=== PATIENT | female | born 1990 | race Hispanic/Latino ===

== ENCOUNTER 2017-07-27 14:59 | Inpatient (IN) | payer OTHER, SELFPAY ==
[~2017-07-27] VITALS: Ht 165.1 cm; Wt 124.4 kg
[2017-07-27] MEDS ORDERED: NEXI40GR PO (15:18)
[2017-07-27] MEDS ORDERED: IBUP-1114 PO (15:18)
--- NOTE | 2017-07-27 17:33 | REP ---
CT study of the brain without contrast: History: Headache. Swelling over the area of the SOLUTIONS DELIVERY CONSULTANT shunt. No comparison imaging. Findings: Preliminary digital journeyman welder radiograph demonstrates a ventriculostomy shunt catheter. Bone window settings show a right frontal ventriculostomy shunt tube in place coursing through the frontal horns. The lateral ventricles are small. No third ventricle or fourth ventricle dilation is seen. No extra-axial fluid collection is observed. No midline shift, intracranial hemorrhage, mass or infarction is seen. A fluid filled reservoir is seen for the shunt catheter at the bony calvarium. No other scalp lesion is seen. Visualized paranasal sinuses are clear. Impression: Right frontal ventriculostomy tube in place coursing through the frontal horns of the lateral ventricles. No evidence of hydrocephalous. No acute intracranial abnormality. Signed by Rafat Meraz MD 07/27/2017 06:55 P
[2017-07-27] MEDS ORDERED: NS 1,000 ML IV SCH (19:42)
[2017-07-27] MEDS ORDERED: METOCLOPRAMIDE INJ 10MG/2ML VIAL (J2765) IV ONE (19:45)
--- NOTE | 2017-07-27 20:04 | REP ---
Shunt series: Two views. History: Pain. Findings: The patient is status post lumboperitoneal shunt placement. The intraspinal portion of the shunt tube appears intact and is seen entering the spinal canal at the T12-L1 interspinous space and ascending up into the lower thoracic spine, terminating at T10. The peritoneal portion of the shunt is coiled upon itself in the pelvic peritoneal reflections and does not appear to connect to the lumbar portion. Impression: Discontinuous, disconnected lumboperitoneal shunt. The shunt tubing is disconnected between the dorsal paraspinal soft tissues and the peritoneal portion, which is coiled in the pelvic reflections. Signed by Rafat Meraz MD 07/27/2017 08:07 P
[2017-07-27 21:01] LABS: BASO % 0.6 % (0.0-1.0); EOS # 0.2 K/mm3 (0.0-0.50); LARGE UNSTAINED CELL # 0.1 K/mm3 (0.0-0.4); LARGE UNSTAINED CELL % 1.5 % (0.0-4.0); LYMPH # 2.5 K/mm3 (1.5-6.5); LYMPH % 32.1 % (24.0-44.0); MEAN CORPUSCULAR HEMOGLOBIN 27.6 pg (27.0-33.0); MEAN CORPUSCULAR HGB CONC 34.3 g/dl (32.0-36.5); MEAN CORPUSCULAR VOLUME 80.4 fl (80.0-96.0); MONO # 0.3 K/mm3 (0.0-0.8); MONO % 3.9 % (0.0-5.0); NEUTROPHILS # 4.7 K/mm3 (1.8-7.7); PLATELET COUNT, AUTOMATED 262 k/mm3 (150-450); RED CELL DISTRIBUTION WIDTH 13.8 % (11.5-14.5); WHITE BLOOD COUNT 7.8 K/mm3 (4.0-10.0)
[2017-07-27 21:08] LABS: ANION GAP 5 MEQ/L (8-16); BLOOD UREA NITROGEN 8 MG/DL (7-18); CALCIUM LEVEL 8.5 MG/DL (8.5-10.1); CARBON DIOXIDE LEVEL 28 MEQ/L (21-32); CHLORIDE LEVEL 106 MEQ/L (98-107); CREATININE FOR GFR 0.88 MG/DL (0.55-1.02); GLOMERULAR FILTRATION RATE > 60.0 (>60); GLUCOSE, FASTING 94 MG/DL (70-105); SODIUM LEVEL 139 MEQ/L (136-145)
[2017-07-27 21:23] LABS: GLUCOSE CSF 66 MG/DL (40-75)
[2017-07-27] MEDS ORDERED: ACETAMINOPHEN 325 MG TAB As Ordered ONE (21:53)
[2017-07-27] MEDS: ACETAMINOPHEN TAB 650MG DOSE (2X325MG) PO SCH (21:55)
[2017-07-27 21:57] LABS: APPEARANCE, CSF HAZY (CLEAR); COLOR, CSF PINK (COLORLESS); CSF TUBE# CELL CNT TUBE 3
[2017-07-27 21:58] LABS: CSF DIFF IF INDICATED? YES (NO); CSF DILUENT LOT # 6333; RBC CSF AUTO 2516 /mm3 (0-0); WBC CSF AUTO 29 /mm3 (0-10)
[2017-07-28] VITALS (7 sets, daily range): BP systolic 108–130; BP diastolic 57–79
[2017-07-28 01:21] LABS: INR 1.07
[2017-07-28] MEDS: ACETAMINOPHEN TAB 650MG DOSE (2X325MG) PO SCH ×6 (02:08→22:49)
[2017-07-28] MEDS ORDERED: SLF 3 ML SYR IV PRN (07:45)
[2017-07-28] MEDS: traMADol 50 MG TAB PO PRN ×2 (10:37→14:42)
[2017-07-28] MEDS: raNITIdine SYRUP 150 MG/10 ML UDC PO SCH ×2 (10:38→21:10)
[2017-07-28] MEDS: SLF 3 ML SYR IV SCH ×2 (14:00→22:49)
[2017-07-28] MEDS: ONDANSETRON 4MG/2ML VIAL (J2405) IV PRN (15:51)
[2017-07-28] MEDS: MORPHINE 10 MG/ML 1ML VIAL IV PRN ×2 (18:44→23:19)
[2017-07-29] VITALS: BP 124/62
[2017-07-29] MEDS: ONDANSETRON 4MG/2ML VIAL (J2405) IV PRN ×5 (00:04→22:06)
[2017-07-29 04:00] VITALS: BP 117/64
[2017-07-29] MEDS: ACETAMINOPHEN TAB 650MG DOSE (2X325MG) PO SCH ×5 (05:00→20:44)
[2017-07-29] MEDS: SLF 3 ML SYR IV SCH ×3 (06:00→20:45)
[2017-07-29] MEDS: MORPHINE 10 MG/ML 1ML VIAL IV PRN ×4 (07:58→22:07)
[2017-07-29 08:00] VITALS: BP 116/72
[2017-07-29] MEDS ORDERED: INFLUENZA QUADRIVALENT PF VACCINE 0.5ML SYRINGE (90686) IM ONE (09:00)
[2017-07-29] MEDS: raNITIdine SYRUP 150 MG/10 ML UDC PO SCH ×2 (09:45→20:52)
[2017-07-29 12:00] VITALS: BP 110/58
[2017-07-29 16:00] VITALS: BP 136/66
[2017-07-29 21:00] VITALS: BP 123/70
[2017-07-30 01:00] VITALS: BP 109/52
[2017-07-30] MEDS: ACETAMINOPHEN TAB 650MG DOSE (2X325MG) PO SCH ×6 (01:00→21:00)
[2017-07-30] MEDS: ONDANSETRON 4MG/2ML VIAL (J2405) IV PRN ×5 (02:38→22:39)
[2017-07-30] MEDS: MORPHINE 10 MG/ML 1ML VIAL IV PRN ×5 (02:39→22:39)
[2017-07-30 08:00] VITALS: BP 135/67
[2017-07-30] MEDS: raNITIdine SYRUP 150 MG/10 ML UDC PO SCH ×2 (08:26→21:23)
[2017-07-30] MEDS: SLF 3 ML SYR IV SCH ×3 (08:27→21:22)
[2017-07-30 16:14] VITALS: BP 118/56
[2017-07-30 20:00] VITALS: BP 117/59
[2017-07-30] MEDS: D5W/0.9% SODIUM CHLORIDE 1,000 ML IV SCH (23:46)
[2017-07-31] VITALS: BP 102/51
[2017-07-31] MEDS: ACETAMINOPHEN TAB 650MG DOSE (2X325MG) PO SCH ×6 (01:00→20:57)
[2017-07-31] MEDS: ONDANSETRON 4MG/2ML VIAL (J2405) IV PRN ×4 (03:43→18:46)
[2017-07-31] MEDS: MORPHINE 10 MG/ML 1ML VIAL IV PRN ×5 (03:44→22:45)
[2017-07-31] MEDS: SLF 3 ML SYR IV SCH ×3 (06:00→20:58)
[2017-07-31 08:00] VITALS: BP 111/67
[2017-07-31] MEDS: raNITIdine SYRUP 150 MG/10 ML UDC PO SCH ×2 (08:00→20:58)
[2017-07-31] MEDS: D5W/0.9% SODIUM CHLORIDE 1,000 ML IV SCH (08:01)
[2017-07-31 12:00] VITALS: BP 101/57
[2017-07-31 16:00] VITALS: BP 108/57
[2017-07-31 22:00] VITALS: BP 107/57
[2017-08-01] MEDS: ACETAMINOPHEN TAB 650MG DOSE (2X325MG) PO SCH ×6 (01:00→21:00)
[2017-08-01] MEDS: MORPHINE 10 MG/ML 1ML VIAL IV PRN ×6 (02:04→21:20)
[2017-08-01] MEDS: ONDANSETRON 4MG/2ML VIAL (J2405) IV PRN ×3 (02:04→21:19)
[2017-08-01 06:00] VITALS: BP 110/68
[2017-08-01] MEDS: SLF 3 ML SYR IV SCH ×3 (06:12→21:35)
[2017-08-01] MEDS: raNITIdine SYRUP 150 MG/10 ML UDC PO SCH ×2 (09:00→21:20)
[2017-08-01] MEDS: LACTULOSE 20 GM/30 ML SYRUP UD PO SCH (09:00)
[2017-08-01 14:00] VITALS: BP 98/53
[2017-08-01] MEDS: DOCUSATE SODIUM 100 MG CAP PO SCH (17:52)
[2017-08-01 22:00] VITALS: BP 120/70
[2017-08-02] MEDS: MORPHINE 10 MG/ML 1ML VIAL IV PRN ×6 (00:30→21:39)
[2017-08-02] MEDS: ACETAMINOPHEN TAB 650MG DOSE (2X325MG) PO SCH ×6 (01:00→21:00)
[2017-08-02] MEDS: ONDANSETRON 4MG/2ML VIAL (J2405) IV PRN ×3 (05:07→15:51)
[2017-08-02] MEDS: SLF 3 ML SYR IV SCH ×3 (05:12→21:47)
[2017-08-02 06:00] VITALS: BP 129/83
[2017-08-02] MEDS: LACTULOSE 20 GM/30 ML SYRUP UD PO SCH (09:00)
[2017-08-02] MEDS: DOCUSATE SODIUM 100 MG CAP PO SCH ×2 (09:31→21:00)
[2017-08-02] MEDS: raNITIdine SYRUP 150 MG/10 ML UDC PO SCH ×2 (09:31→21:46)
[2017-08-02 14:00] VITALS: BP 131/85
[2017-08-02 14:00] LABS: MEAN CORPUSCULAR HEMOGLOBIN 27.6 pg (27.0-33.0); MEAN CORPUSCULAR HGB CONC 34.9 g/dl (32.0-36.5); MEAN CORPUSCULAR VOLUME 79.2 fl (80.0-96.0); RED CELL DISTRIBUTION WIDTH 13.4 % (11.5-14.5); WHITE BLOOD COUNT 7.8 K/mm3 (4.0-10.0)
[2017-08-02 14:35] LABS: GLUCOSE CSF 79 MG/DL (40-75)
[2017-08-02 15:06] LABS: APPEARANCE, CSF CLEAR (CLEAR); COLOR, CSF PINK (COLORLESS); CSF DIFF IF INDICATED? YES (NO); CSF TUBE# CELL CNT TUBE 1; RBC CSF AUTO 6236 /mm3 (0-0); WBC CSF AUTO 56 /mm3 (0-10)
[2017-08-02 15:07] LABS: CSF DILUENT LOT # 6333
[2017-08-02 22:00] VITALS: BP 127/80
[2017-08-03] MEDS: ACETAMINOPHEN TAB 650MG DOSE (2X325MG) PO SCH ×6 (01:00→21:46)
[2017-08-03] MEDS: MORPHINE 10 MG/ML 1ML VIAL IV PRN ×6 (01:37→21:46)
[2017-08-03] MEDS: SLF 3 ML SYR IV SCH ×3 (05:51→21:47)
[2017-08-03 06:00] VITALS: BP 112/66
[2017-08-03 06:48] LABS: MEAN CORPUSCULAR HEMOGLOBIN 27.5 pg (27.0-33.0); MEAN CORPUSCULAR HGB CONC 34.4 g/dl (32.0-36.5); MEAN CORPUSCULAR VOLUME 79.9 fl (80.0-96.0); RED CELL DISTRIBUTION WIDTH 13.4 % (11.5-14.5); WHITE BLOOD COUNT 7.3 K/mm3 (4.0-10.0)
[2017-08-03] MEDS: LACTULOSE 20 GM/30 ML SYRUP UD PO SCH (09:00)
[2017-08-03] MEDS: raNITIdine SYRUP 150 MG/10 ML UDC PO SCH ×2 (09:57→21:45)
[2017-08-03] MEDS: DOCUSATE SODIUM 100 MG CAP PO SCH ×2 (09:58→21:46)
[2017-08-03 14:00] VITALS: BP 120/70
[2017-08-03] MEDS ORDERED: COLA100C5 PO (15:57)
[2017-08-03] MEDS ORDERED: ZANT1TAB PO (15:57)
[2017-08-03] MEDS ORDERED: TYLE325T5 PO (15:57)
[2017-08-03] MEDS ORDERED: MORP15IN4 IV (15:57)
[2017-08-03] MEDS ORDERED: ZOFR4SOL IV (15:57)
[2017-08-03] MEDS ORDERED: SALI0.9I2 IV (15:57)
[2017-08-03] MEDS ORDERED: cephulac PO (15:57)
[2017-08-04 00:02] VITALS: BP 115/64
[2017-08-04] MEDS: ACETAMINOPHEN TAB 650MG DOSE (2X325MG) PO SCH ×6 (01:27→21:00)
[2017-08-04] MEDS: MORPHINE 10 MG/ML 1ML VIAL IV PRN ×4 (01:32→18:43)
[2017-08-04 06:02] VITALS: BP 115/54
[2017-08-04] MEDS: SLF 3 ML SYR IV SCH ×3 (06:05→22:00)
[2017-08-04] MEDS: DOCUSATE SODIUM 100 MG CAP PO SCH ×2 (09:00→20:51)
[2017-08-04] MEDS: LACTULOSE 20 GM/30 ML SYRUP UD PO SCH (09:17)
[2017-08-04] MEDS: raNITIdine SYRUP 150 MG/10 ML UDC PO SCH ×2 (10:02→20:51)
[2017-08-04] MEDS ORDERED: PERCOCET 5MG/325MG TAB PO PRN (11:15)
[2017-08-04 14:00] VITALS: BP 110/60
[2017-08-04] MEDS: PERCOCET 5MG/325MG TAB PO PRN ×2 (14:19→20:53)
[2017-08-04 22:00] VITALS: BP 122/58
[2017-08-05] MEDS: ACETAMINOPHEN TAB 650MG DOSE (2X325MG) PO SCH ×6 (01:00→20:52)
[2017-08-05] MEDS: SLF 3 ML SYR IV SCH ×3 (03:30→20:49)
[2017-08-05] MEDS: MORPHINE 10 MG/ML 1ML VIAL IV PRN ×3 (03:30→20:47)
[2017-08-05] MEDS: PERCOCET 5MG/325MG TAB PO PRN ×3 (05:59→18:54)
[2017-08-05 06:00] VITALS: BP 110/54
[2017-08-05] MEDS: LACTULOSE 20 GM/30 ML SYRUP UD PO SCH (08:46)
[2017-08-05] MEDS: DOCUSATE SODIUM 100 MG CAP PO SCH ×2 (08:47→20:47)
[2017-08-05] MEDS: raNITIdine SYRUP 150 MG/10 ML UDC PO SCH ×2 (08:47→20:49)
[2017-08-05 14:00] VITALS: BP 125/71
[2017-08-05 22:00] VITALS: BP 112/80
[2017-08-06] MEDS: PERCOCET 5MG/325MG TAB PO PRN ×4 (00:29→21:00)
[2017-08-06] MEDS: ACETAMINOPHEN TAB 650MG DOSE (2X325MG) PO SCH ×6 (00:30→21:00)
[2017-08-06 06:00] VITALS: BP 102/58
[2017-08-06] MEDS: SLF 3 ML SYR IV SCH ×3 (06:00→20:59)
[2017-08-06] MEDS: MORPHINE 10 MG/ML 1ML VIAL IV PRN (08:00)
[2017-08-06] MEDS: LACTULOSE 20 GM/30 ML SYRUP UD PO SCH (08:00)
[2017-08-06] MEDS: DOCUSATE SODIUM 100 MG CAP PO SCH ×2 (08:00→20:58)
[2017-08-06] MEDS: raNITIdine SYRUP 150 MG/10 ML UDC PO SCH ×2 (08:00→20:58)
[2017-08-06] MEDS ORDERED: AcetaZOLAMIDE 500MG INJECTION (J1120) IV STA (12:40)
[2017-08-06 14:00] VITALS: BP 131/76
[2017-08-06] MEDS ORDERED: TROPICAMIDE 1% OPHTH SOLN 2ML OU STA (17:16)
[2017-08-06] MEDS ORDERED: TETRACAINE 0.5% OPHTH SOLN 4ML OU STA (17:16)
--- NOTE | 2017-08-06 17:31 | REP ---
MRA BRAIN WITH CONTRAST: HISTORY: Headache. CONTRAST: ProHance 20 mL. Unenhanced and enhanced 3D phase contrast MR angiography were performed. There are no filling defects in the deep venous system or dural sinuses. The right transverse and sigmoid sinuses are dominant. The left transverse and sigmoid sinuses are hypoplastic. There appears to be stenosis of the distal left transverse and proximal sigmoid sinus. IMPRESSION: 1. There is no sinus thrombosis. 2. There appears to be stenosis of the distal left transverse and proximal left sigmoid sinus. Signed by Luis Sawyer MD 08/07/2017 09:28 A
[2017-08-06] MEDS ORDERED: PHENYLEPHRINE HCL 10 % OPHTH. SOL 5ML OU STA (17:35)
[2017-08-06] MEDS: AcetaZOLAMIDE 250 MG TAB PO SCH (20:58)
[2017-08-06] MEDS ORDERED: AcetaZOLAMIDE 500MG INJECTION (J1120) IV SCH (21:00)
[2017-08-06 22:00] VITALS: BP 105/54
[2017-08-07] MEDS: ACETAMINOPHEN TAB 650MG DOSE (2X325MG) PO SCH ×6 (01:00→20:08)
[2017-08-07] MEDS: PERCOCET 5MG/325MG TAB PO PRN (02:45)
--- NOTE | 2017-08-07 04:45 | REP ---
Clinical: Intrathecal catheter positioning. Findings: There appears to be a catheter within the spinal canal with its superior tip at the T10 level extending caudally and exiting of via the T12/L1 right posterior interspace through the right paraspinous soft tissues into the subcutaneous tissue where there appears to be granulation tissue and/or fluid collection measuring 3.7 x 7.0 cm maximal AP and transverse diameter and approximately 6.1 cm in length (images 64 - 85). The end of the catheter terminates in a valve which is identified in the subcutaneous tissues at the L1 level. The free portion of catheter is then identified within the pelvis which has likely been disconnected from the above-mentioned valve. Liver, spleen, pancreas, gallbladder, bilateral adrenal glands and kidneys are normal for noncontrast evaluation. The enteric system is without obstruction or acute inflammatory process. The pelvis demonstrates partially collapsed normal bladder and age-appropriate uterus and adnexa with IUD identified. No pelvic fluid or ascites. No significant adenopathy. No mass lesion a discrete fluid collection/abscess. Lung bases are clear. Visualized heart and pericardium normal. Musculoskeletal structures are intact. Impression: 1. Intrathecal/spinal canal catheter as described above with possible collection in the paraspinous subcutaneous tissues which appears to be disconnected from a free catheter identified in the pelvis. 2. No intra-abdominal/pelvic or retroperitoneal collection or mass. Signed by Sean Medina MD 08/07/2017 04:37 A
[2017-08-07] MEDS: SLF 3 ML SYR IV SCH ×3 (05:47→20:09)
[2017-08-07 06:00] VITALS: BP 127/57
[2017-08-07 07:11] LABS: MEAN CORPUSCULAR HEMOGLOBIN 25.9 pg (27.0-33.0); RED CELL DISTRIBUTION WIDTH 13.3 % (11.5-14.5); WHITE BLOOD COUNT 7.1 10^3/uL (4.0-10.0)
[2017-08-07 07:12] LABS: INR 1.07
[2017-08-07 07:37] LABS: ALBUMIN 3.4 GM/DL (3.2-5.2); ALBUMIN/GLOBULIN RATIO 0.77 (1.00-1.93); ALKALINE PHOSPHATASE 85 U/L (45-117); ALT/SGPT 20 U/L (12-78); ANION GAP 6 MEQ/L (8-16); AST/SGOT 8 U/L (15-37); BILIRUBIN,TOTAL 0.4 MG/DL (0.2-1.0); BLOOD UREA NITROGEN 10 MG/DL (7-18); CALCIUM LEVEL 8.8 MG/DL (8.5-10.1); CARBON DIOXIDE LEVEL 25 MEQ/L (21-32); CHLORIDE LEVEL 107 MEQ/L (98-107); CREATININE FOR GFR 0.97 MG/DL (0.55-1.02); GLOMERULAR FILTRATION RATE > 60.0 (>60); GLUCOSE, FASTING 94 MG/DL (70-105); SODIUM LEVEL 138 MEQ/L (136-145); TOTAL PROTEIN 7.8 GM/DL (6.4-8.2)
[2017-08-07] MEDS: AcetaZOLAMIDE 250 MG TAB PO SCH ×2 (09:00→20:22)
[2017-08-07] MEDS ORDERED: AcetaZOLAMIDE 500MG INJECTION (J1120) IV STA (09:19)
[2017-08-07] MEDS: LACTULOSE 20 GM/30 ML SYRUP UD PO SCH (09:24)
[2017-08-07] MEDS: DOCUSATE SODIUM 100 MG CAP PO SCH ×2 (09:24→20:07)
[2017-08-07] MEDS: raNITIdine SYRUP 150 MG/10 ML UDC PO SCH ×3 (10:38→20:22)
[2017-08-07] MEDS: MORPHINE 10 MG/ML 1ML VIAL IV PRN (12:27)
[2017-08-07] MEDS ORDERED: BACITRACIN PWD 50,000 UNITS VIAL As Ordered ONE (12:49)
[2017-08-07] MEDS ORDERED: NAFCILLIN SOD 1 GM VIAL (S0032) As Ordered ONE (12:49)
[2017-08-07] MEDS ORDERED: THROMBIN SOLN 20,000 UNITS KIT As Ordered ONE (12:49)
[2017-08-07 13:15] VITALS: BP 107/61
[2017-08-07] MEDS ORDERED: LIDOCAINE 2% INJ 100 MG/5 ML SDV (FOR ANES.) As Ordered ONE (13:23)
[2017-08-07] MEDS ORDERED: ROCURONIUM BROMIDE 50 MG/5 ML VIAL/SYRINGE As Ordered ONE ×2 (13:23→15:43)
[2017-08-07] MEDS ORDERED: PROPOFOL 200 MG/20 ML VIAL As Ordered ONE ×2 (13:23→16:04)
[2017-08-07] MEDS ORDERED: MIDAZOLAM INJ 2 MG/2 ML VIAL (J2250) As Ordered ONE (13:24)
[2017-08-07] MEDS ORDERED: fentaNYL 100 MCG/2 ML INJECTION (J3010) As Ordered ONE ×5 (13:24→17:21)
[2017-08-07] MEDS ORDERED: ceFAZolin 2 GM/D5W 50 ML IV BAG (J0690) As Ordered ONE (13:37)
[2017-08-07 14:19] LABS: CONTROL LINE UCG INT CTR LINE PRESENT
[2017-08-07] MEDS ORDERED: dexameTHASONE 4 MG/ML 1ML VIAL (J1100) As Ordered ONE (14:24)
[2017-08-07] MEDS ORDERED: PHENYLephrine HCL 500 MCG/5 ML (100MCG/ML) SYRINGE (J2370) As Ordered ONE (14:26)
[2017-08-07] MEDS ORDERED: ONDANSETRON 4MG/2ML VIAL (J2405) As Ordered ONE (15:19)
[2017-08-07] MEDS ORDERED: NEOSTIGMINE 10 MG/10 ML VIAL (J2710) As Ordered ONE (15:22)
[2017-08-07] MEDS ORDERED: GLYCOPYRROLATE INJ 0.2 MG/ML 2 ML VIAL As Ordered ONE (15:22)
[2017-08-07] MEDS ORDERED: LABETALOL HCL 100 MG/20 ML VIAL As Ordered ONE (16:27)
[2017-08-07] MEDS ORDERED: BACITRACIN OINT 30GM As Ordered ONE (16:42)
[2017-08-07 17:25] LABS: CSF TUBE# CELL CNT TUBE 3
[2017-08-07 17:26] LABS: APPEARANCE, CSF CLEAR (CLEAR); COLOR, CSF COLORLESS (COLORLESS); CSF DIFF IF INDICATED? NO (NO)
[2017-08-07] MEDS ORDERED: PERCOCET 5MG/325MG TAB PO PRN (17:30)
[2017-08-07] MEDS ORDERED: LR 1,000 ML IV SCH (17:30)
[2017-08-07 17:36] LABS: GLUCOSE CSF 56 MG/DL (40-75)
[2017-08-07] MEDS: fentaNYL 100 MCG/2 ML INJECTION (J3010) IV PRN ×2 (17:38→17:45)
[2017-08-07] MEDS ORDERED: KCL 20MEQ IN D5/.45NACL 1000ML As Ordered ONE (17:56)
[2017-08-07] MEDS: KCL 20MEQ IN D5/0.45NS 1000ML 1,000 ML IV SCH (18:15)
[2017-08-07 18:21] VITALS: BP 112/69
[2017-08-07] MEDS: MORPHINE 2 MG/ML 1ML SYRINGE IV PRN ×2 (18:29→23:35)
[2017-08-07 20:00] VITALS: BP 115/70
[2017-08-08] VITALS: BP 105/55
[2017-08-08] MEDS: ACETAMINOPHEN TAB 650MG DOSE (2X325MG) PO SCH ×6 (03:11→19:55)
[2017-08-08] MEDS: KCL 20MEQ IN D5/0.45NS 1000ML 1,000 ML IV SCH ×2 (03:11→11:41)
[2017-08-08 04:00] VITALS: BP 108/63
[2017-08-08] MEDS: SLF 3 ML SYR IV SCH ×3 (05:10→19:58)
[2017-08-08] MEDS: MORPHINE 2 MG/ML 1ML SYRINGE IV PRN (07:27)
[2017-08-08 08:00] VITALS: BP 109/55
[2017-08-08] MEDS: raNITIdine SYRUP 150 MG/10 ML UDC PO SCH ×2 (08:43→19:54)
[2017-08-08] MEDS: DOCUSATE SODIUM 100 MG CAP PO SCH ×2 (08:43→19:54)
[2017-08-08] MEDS: AcetaZOLAMIDE 250 MG TAB PO SCH ×2 (08:43→22:41)
[2017-08-08] MEDS: LACTULOSE 20 GM/30 ML SYRUP UD PO SCH (08:43)
--- NOTE | 2017-08-08 09:27 | RO ---
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 visual failure with papilledema, morbid obesity, PROCEDURE: Revision of lumboperitoneal shunt, using Spetzler LP shunt catheter.. SURGEON: Berny Colmenares MD APPLIANCE REPAIR TECHNICIAN:( Dr. Cristino Shah and Dr. Adan Horan for the abdominal portion.) ANESTHESIA: General FINDINGS: Please see my recent progress note for the preoperative evaluation and discussions. The patient had benign intracranial hypertension diagnosed several years ago and underwent a lumboperitoneal shunt, which had to be revised on one occasion and also a right frontal ventriculostomy and Ommaya reservoir was placed as a backup. The patient did well and this shunt resolved most of her symptoms. Recently, she developed those symptoms back again with beginning visual failure and severe headaches. She was admitted to the hospital by Dr. Shah and she was waiting for a bed to be opened up at [facility] for further treatment. I was asked to see her for a second opinion and I did agree with Dr. Shah that she will require revision of her lumboperitoneal shunt. The patient clinically had no focal motor deficits. She had photophobia, photopsia, as well as blurred vision. An urgent ophthalmological examination was done by Dr. Quinn, which revealed severe papilledema. Various options of management were discussed with her yesterday and again today. She was aware of all options, risks, scope, expected outcome, sequel and all possible complications of surgery. Various surgical options were discussed including conversion of her right Ommaya reservoir into a ventriculoperitoneal shunt or replacement of her lumboperitoneal shunt, or optic fenestration. I had requested an MRI and MRV. Though the MRI could not be done , the MRV did show, as expected, stenosis of both transverse sinuses distally, and there was suggestion of a certain degree of flattening of the globe on the left, though no detailed images of the orbits were available. 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 Her pituitary gland was plastered against the inferior and posterior wall of the sella. She understood that surgery is not curative and understood the risk of surgery included but not limited to , paralysis, coma, meningitis, loss of vision and/or any other vital bodily functions, seizures, status epilepticus, failure of surgery, need for multiple surgeries, infection, bleeding, meningitis, pulmonary embolism (PE), deep vein thrombosis (DVT), myocardial infarction (DE), intracranial hypotension and its dreadful sequel, and/or any catastrophic sequel. She wished to proceed with surgery. She claims there is no way she can live with these headaches and visual blurring and sever photophobia and photopsia. Obtained informed consent and after all matters pertaining to the surgery, anesthesia and followup care have been discussed, and after she was aware of my role in her neurosurgical care, she wished to proceed with surgery. Once in the operating room, the general anesthesia was given by the anesthesia service. The area of surgery was prepped and draped in the usual sterile fashion after positioning her, with some difficulty on account of her morbid obesity in the right lateral decubitus position. After she was adequately prepped, her previous lumbar incision was opened. The deep layer of the superficial fascia region was reached and incised. The cut edges of the blood vessels were coagulated with bipolar cautery. Marked scar tissue was identified from the lumbodorsal fascia all the way up to the subcutaneous layers. Coiled shunt assembly was seen. A free floating anchoring device was also seen, which was removed. The intrathecal catheter was finally dissected off all this scar tissue. A valve was encountered and it was also similarly dissected free of scar tissue. The distal peritoneal catheter was disconnected at the distal end of the valve. Slow egress of cerebrospinal fluid (CSF) was seen at this valve. The intrathecal catheter was then disconnected from this valve, then the CSF gushed out. The opening pressure was approximately 50 cm or more. Clear CSF was sent for pathological examination. Using a connector, a new Spetzler catheter was then attached to the existing freely flowing intrathecal catheter and then secured with two # 2 zero silk ties on either end. A subcutaneous tunnel was created from the abdominal incision into the lumbar incision and the shunt tube was passed into the abdominal cavity where Dr. Shah and Dr. Horan performed a laparotomy to place the catheter intraperitoneally. Details of that procedure will be found elsewhere. The lumbar wound was closed in anatomic layers. Blood loss was negligible, maybe a couple of mL. I could not locate any family for further discussions. The patient however, had followup instructions. JUDITH
[2017-08-08 14:00] VITALS: BP 178/76
--- NOTE | 2017-08-08 19:58 | ROOPDOC ---
[facility] Report Of Operation Report of Operation DATE OF SURGERY: 08/07/2017 SURGEON: Dr. Roya Shah Co-Surgeon: This OR report is part of surgery performed by . He dictate main OR report. I dictate only part which was done by me. PROCEDURE PERFORMED: 1. Peritoneal catheter placement DESCRIPTION OF THE PROCEDURE OPERATIVE TECHNIQUE The abdomen skin incision is placed horizontally 2 cm lateral and 2 cm superior to the umbilicus. The abdominal opening was done in a stepwise fashion. After the skin is incised and the subcutaneous tissue dissected, the external fascia of the rectus abdominis muscle was dissected vertically, and then retracted laterally. The inner fascia was then grasped with a forceps and incised. This brings a smooth brighter layer in the field, the peritoneum, which was also grasped and opened with scissors. A purse-string suture is then placed around this last layer, using 3-0 Vicryl. Attention is then given to the tunneling portion. Tunneling was performed from the abdominal incision up to the head. A shunt passer was used for this step, which is advanced subcutaneously, kept over the clavicle, until it reaches the cranial incision. The distal catheter was then passed through the inner channel of the passer from proximal to distal. The passer is then removed and the shunt tubing is left in place. All exposed skin edges were covered with antibiotic-soaked sponges, and sterile towels were draped around the wound before shunt insertion. The peritoneal catheter was then inserted. Prior to catheter insertion, the patency of its distal end is verified and CSF flow through the entire system is confirmed. Using bayonets the distal catheter was inserted into the peritoneal cavity to a length of 30cm. The purse-string suture was secured. The wound was irrigated with antibiotic saline solution. Hemostasis is achieved. The fascia of the wound was closed by using interrupted Vicryl sutures , then the skin is closed in a standard fashion. ROYA SHAH MD Aug 08, 2017 19:58
[2017-08-08 22:00] VITALS: BP 141/65
[2017-08-09] MEDS: ACETAMINOPHEN TAB 650MG DOSE (2X325MG) PO SCH ×5 (01:00→17:29)
[2017-08-09] MEDS: SLF 3 ML SYR IV SCH ×2 (05:55→14:00)
[2017-08-09 06:00] VITALS: BP 123/79
[2017-08-09] MEDS: LACTULOSE 20 GM/30 ML SYRUP UD PO SCH ×2 (08:10→08:12)
[2017-08-09] MEDS: raNITIdine SYRUP 150 MG/10 ML UDC PO SCH (08:10)
[2017-08-09] MEDS: AcetaZOLAMIDE 250 MG TAB PO SCH (08:11)
[2017-08-09] MEDS: DOCUSATE SODIUM 100 MG CAP PO SCH ×2 (08:11→08:12)
[2017-08-09 14:00] VITALS: BP 132/70
[2017-08-09] MEDS ORDERED: DIAM500C PO (16:02)
--- NOTE | 2017-08-14 15:53 | DS.PDOC ---
General Date of Admission: Jul 27, 2017 Date of Discharge: Aug 08, 2017 Attending Physician: ROYA SHAH MD Specialist/Consultants Involve: PEÑA COOK MD Discharge Summary PROCEDURES PERFORMED DURING STAY: 1. Multiple Omaya reservar taps 2. Repair of lumbo-peritoneal shunt COMPLICATIONS/CHIEF COMPLAINT: Severe headache, nausea, vomiting ADMISSION DIAGNOSES: 1. LP shunt malfunction 2. Idiopatic intracranial hypertension DISCHARGE DIAGNOSES: 1. LP shunt malfunction 2. Idiopatic intracranial hypertension HISTORY OF PRESENT ILLNESS: . Mrs. Zee is 26 yo female with known diagnosis of IIH and LP shunt placement presented to [facility] with severe h/a, N&V and CT ABD reveal disconnection of abdominal portion of LP shunt. She was managed initially with [facility] CSF tapping. CSF result were negative for infection. HOSPITAL COURSE: . Patient underwent surgery on 08/07/2017 for the repair of LP shunt which was done by Dr. Cook and Dr. Shah. She has been discharge home next day with instruction to follow up with Dr. Cook office. DISCHARGE MEDICATIONS: Please see below. ALLERGIES: Please see below. PHYSICAL EXAMINATION ON DISCHARGE: VITAL SIGNS: Please see below. GENERAL: [Sitting comfortably and participating in conversion well. Appears to be in no acute distress]. EXTREMITIES: [No peripheral edema, ecchymosis, or lesions. Moving all 4 extremities well]. SKIN: [No rashes, ecchymosis, erythema, or lesions. Edges of the incision are close together nicely and incision is dry. There is no active drainage or significant swelling noted.] NEUROLOGICAL EXAMINATION: [Alert and oriented times three. Rate and flow of speech is fluent. No new focal deficits noted on exam]. LABORATORY DATA: Please see below. IMAGING: ACTIVITY: See below in discharge instructions. DIET: See below in discharge instructions. DISCHARGE PLAN AND INSTRUCTIONS: The following discharge instructions have been discussed with the patient. 1. Keep incision dry for at least 48 hours. 2. Keep incision clean and inspect daily for signs of infection (redness, discharge, swelling, increased pain, and warmth. 3. You may shower 48 hours after surgery. Avoid bath tubs, hot tubs/whirlpools, and swimming pools until cleared by surgeon or PA. 4. Do not apply lotions or creams near the incision site. 5. Start walking around the house as soon as possible. This helps to reduce swelling and lowers the chance of blood clots. 6. Continue to gradually increase physical activity. 7. Climbing stairs at home is permitted as tolerated with caution. If available use handrails, taking time going up and down the stairs paying close attention to place each foot on each step carefully. 8. No bending, twisting, pulling, pushing, or lifting greater than 5 pounds until followup in the office. 9. No strenuous activity for at least 2 weeks. 10. Get plenty of rest. 11. Follow a balanced diet and drink plenty of water. 12. Decreased activity and pain medications may promote constipation, so you may have to add more raw fruit to your diet. A mild [id number] stool softener or laxative may be used if necessary. 13. Take pain medications as prescribed. pain medications will not remove all the pain, but will lesson it significantly. 14. Do not drink alcohol while taking medications. 15. Do not drive or operate any machinery until you are given specific instructions about driving when you followup in the office. 16. Patient is to call the office to schedule followup appointment within 1-2 weeks of if any new signs or symptoms develop. [phone]. 17. Patient understands to call the office if any new questions arise. WHAT TO EXPECT: - Soreness, stiffness, and aching can be expected after surgery. - Aryv-jk-btvzrsyi postoperative pain. - Periods of fatigue and/or tiredness. - Healing is a slow and gradual process. - May experience sore throat and/or hoarseness of your voice. - Some numbness may be present around the area of the incision which may persist for several weeks. WHEN TO CALL: - Increased swelling or bruising. - If swelling and redness persist after a few days. - Increased redness along the incision. - If any unusual bleeding or drainage developed at the incision site. - If severe or increased pain not relieved by medication develops. - If any side effects to medications, such as rash, nausea, vomiting, or headache arises. - If temperature of 100.5 degrees or greater. - If any calf pain and/or swelling in any extremity develops. - Any new increased difficulty breathing or shortness of breath. - Any loss of feelings or emotions. - Increased intensity of headache or headache not responding to medications. - Inability to urinate. - Extreme fatigue or lethargy. - Any worsening of any of your symptoms. All questions have been answered to patient's satisfaction. Patient understands and is aware of possible catastrophic sequela if he/she does not follow these recommendations.Patient agrees to followup in the office within 2 weeks or sooner if needed. DISCHARGE CONDITION: Stable. TIME SPENT ON DISCHARGE: Greater than minutes. Laboratory Data Vital Signs Date Time Temp Pulse Resp B/P (MAP) Pulse Ox O2 Delivery O2 Flow Rate FiO2 08/09/17 14:00 97.3 73 17 132/70 (90) 98 Room Air Microbiology 08/07/17 Gram Stain - Final, Complete 08/07/17 CSF Culture - Final, Complete Discharge Medications Scheduled Acetaminophen (Tylenol) 325 Mg Tab, 650 MG PO Q4H, (Reported) Acetazolamide (Diamox) 500 Mg Cap, 500 MG PO BID, (Reported) Docusate Sodium (Colace) 100 Mg Cap, 100 MG PO BID, (Reported) Esomeprazole Magnesium (Nexium) 40 Mg Gra, 40 MG PO DAILY, (Reported) Scheduled PRN Ibuprofen (Ibuprofen) 400 Mg Tab, 400 MG PO Q6H PRN for PAIN, (Reported) Allergies Coded Allergies: No Known Allergies (Unverified , 07/27/17) ROYA SHAH MD Aug 14, 2017 15:53
== END 2017-08-09 17:31 | disposition home or self-care (01) | DRG 30 ==
LOC: M ED 14:59 → M ED INP 20:40 → M PED 23:55 → M MS5PR 07-31 18:07 → M ICU 08-07 17:18 → M MS5PR 08-08 09:49
PROVIDERS: ADMIT Neurological Surgery; ATTEND Neurological Surgery
PROC: 00JU0ZZ Inspection of Spinal Canal, Open Approach (ICD-10-PCS; 2017-08-07)
PROC: 0WHG33Z Insertion of Infusion Device into Peritoneal Cavity, Percutaneous Approach (ICD-10-PCS; 2017-08-07)
PROC: 0JH80WZ Insertion of Totally Implantable Vascular Access Device into Abdomen Subcutaneous Tissue and Fascia, Open Approach (ICD-10-PCS; principal; 2017-08-07 07:46)
DX: T85.620A Displacement of cranial or spinal infusion catheter, initial encounter (principal); E66.01 Morbid (severe) obesity due to excess calories; Z79.899 Other long term (current) drug therapy; G93.2 Benign intracranial hypertension; Y62 Failure of sterile precautions during surgical and medical care

== ENCOUNTER → 2017-11-20 | Outpatient (CLI) | payer OTHER ==
[2017-11-20 14:25] LABS: CSF RBC < 2 10^3/uL (<2)
[2017-11-20 14:26] LABS: APPEARANCE, CSF CLEAR (CLEAR); COLOR, CSF COLORLESS (COLORLESS); CSF TUBE# CELL CNT TUBE 1; CSF WBC 4 /uL (0-10)
[2017-11-20 14:38] LABS: CSF TUBE# GLU TUBE 1; CSF TUBE# TP TUBE 1; GLUCOSE CSF 61 MG/DL (40-75); TOTAL PROTEIN,CSF 32.9 MG/DL (15-45)
[2017-11-20 20:49] LABS: CSF DIFF IF INDICATED? NO (NO)
[2017-11-24 00:08] LABS: IMMUNOGLOBULIN G CSF 2.8 mg/dL (0.0-8.6)
[2017-11-24 09:34] LABS: CSF TUBE# BACT AG TUBE 1
[2017-11-24 09:40] LABS: CSF GROUP B STREP NEGATIVE (NEGATIVE); CSF H. INFLUENZA NEGATIVE (NEGATIVE); CSF N MENINGITIDIS ACYW135 NEGATIVE (NEGATIVE); CSF STREP PNUEMO NEGATIVE (NEGATIVE)
== END ==
LOC: M RADPRO 12:18
DX: G93.2 Benign intracranial hypertension (principal); Z79.899 Other long term (current) drug therapy; Z91.030 Bee allergy status
CPT/HCPCS: 62272

== ENCOUNTER → 2018-02-02 | Outpatient (CLI) | payer OTHER ==
[2018-02-02 13:42] LABS: CSF RBC < 2 10^3/uL (<2)
[2018-02-02 13:44] LABS: CSF DIFF IF INDICATED? NO (NO); CSF WBC 4 /uL (0-10)
[2018-02-02 13:53] LABS: CSF TUBE# GLU TUBE 1; CSF TUBE# TP TUBE 1; GLUCOSE CSF 61 MG/DL (40-75); TOTAL PROTEIN,CSF 22.3 MG/DL (15-45)
[2018-02-02 15:31] LABS: APPEARANCE, CSF CLEAR (CLEAR); COLOR, CSF COLORLESS (COLORLESS); CSF TUBE# CELL CNT TUBE 1
[2018-02-05 00:07] LABS: IMMUNOGLOBULIN G CSF 1.8 mg/dL (0.0-8.6)
== END ==
LOC: M RADPRO 11:41
DX: G93.2 Benign intracranial hypertension (principal); Z79.899 Other long term (current) drug therapy
CPT/HCPCS: 62272

== ENCOUNTER → 2018-02-24 | Outpatient (CLI) | payer OTHER ==
[2018-02-24 13:23] LABS: BASO % 0.6 % (0.0-1.0); EOS # 0.2 10^3/uL (0.0-0.50); EOS % 2.2 % (0.0-3.0); LYMPH % 43.3 % (24.0-44.0); MEAN CORPUSCULAR HEMOGLOBIN 25.5 pg (27.0-33.0); MEAN CORPUSCULAR HGB CONC 32.4 g/dl (32.0-36.5); MEAN CORPUSCULAR VOLUME 78.7 fl (80.0-96.0); MONO # 0.4 10^3/uL (0.0-0.8); MONO % 6.4 % (0.0-5.0); NEUTROPHILS # 3.3 10^3/uL (1.8-7.7); NEUTROPHILS % 47.5 % (36.0-66.0); PLATELET COUNT, AUTOMATED 272 10^3/uL (150-450); RED CELL DISTRIBUTION WIDTH 13.1 % (11.5-14.5); WHITE BLOOD COUNT 6.9 10^3/uL (4.0-10.0)
[2018-02-24 13:33] LABS: PROTHROMBIN TIME 13.3 SECONDS (12.4-14.5)
[2018-02-24 13:34] LABS: PARTIAL THROMBOPLASTIN TIME 39.1 SECONDS (26.8-37.9)
[2018-02-24 13:54] LABS: COLLAGEN EPINEPHRINE 121 SECONDS (74-162)
[2018-02-24 14:15] LABS: ALBUMIN 3.7 GM/DL (3.2-5.2); ALKALINE PHOSPHATASE 97 U/L (45-117); ALT/SGPT 19 U/L (12-78); ANION GAP 5 MEQ/L (8-16); AST/SGOT 9 U/L (7-37); BILIRUBIN,TOTAL 0.3 MG/DL (0.2-1.0); BLOOD UREA NITROGEN 15 MG/DL (7-18); CALCIUM LEVEL 8.9 MG/DL (8.5-10.1); CARBON DIOXIDE LEVEL 29 MEQ/L (21-32); CHLORIDE LEVEL 109 MEQ/L (98-107); CREATININE FOR GFR 0.94 MG/DL (0.55-1.30); GLOMERULAR FILTRATION RATE > 60.0 (>60); GLUCOSE, FASTING 96 MG/DL (70-100); POTASSIUM SERUM 3.8 MEQ/L (3.5-5.1); SODIUM LEVEL 143 MEQ/L (136-145); TOTAL PROTEIN 7.8 GM/DL (6.4-8.2)
== END ==
LOC: M LAB 12:57
DX: Z01.818 Encounter for other preprocedural examination (principal)
CPT/HCPCS: 71046

== ENCOUNTER 2018-03-04 06:37 | Inpatient (IN) | payer OTHER ==
[~2018-03-04 06:37] MED LIST: LIDOCAINE 2% INJ 100 MG/5 ML SDV (FOR ANES.) As Ordered; ONDANSETRON 4MG/2ML VIAL (J2405) As Ordered; PROPOFOL 200 MG/20 ML VIAL As Ordered; ROCURONIUM BROMIDE 50 MG/5 ML VIAL As Ordered; dexameTHASONE 4 MG/ML 1ML VIAL (J1100) As Ordered
[2018-03-04] MEDS ORDERED: LIDOCAINE 1% MDV 20ML VIAL SQ (07:00)
[2018-03-04] MEDS ORDERED: LR 1,000 ML IV (07:00)
[2018-03-04] MEDS: NAFCILLIN SOD 1 GM VIAL (S0032) As Ordered (07:02)
[2018-03-04] MEDS: LIDOCAINE W/EPINEPHRINE 1% 20ML VIAL As Ordered (07:02)
[2018-03-04] MEDS: THROMBIN SOLN 20,000 UNITS KIT As Ordered (07:02)
[2018-03-04] MEDS: BACITRACIN PWD 50,000 UNITS VIAL As Ordered (07:03)
[2018-03-04 07:31] LABS: CONTROL LINE UCG INT CTR LINE PRESENT; URINE PREG TEST NEGATIVE (NEGATIVE)
[2018-03-04] MEDS ORDERED: MIDAZOLAM INJ 2 MG/2 ML VIAL (J2250) As Ordered (08:50)
[2018-03-04] MEDS ORDERED: fentaNYL 250 MCG/5 ML INJECTION (J3010) As Ordered (08:50)
[2018-03-04] MEDS ORDERED: dexameTHASONE 4 MG/ML 1ML VIAL (J1100) As Ordered (08:50)
[2018-03-04] MEDS ORDERED: ePHEDrine SULFATE 25 MG/5 ML(5MG/ML) SYRINGE As Ordered (08:51)
[2018-03-04] MEDS: LR 1,000 ML IV (10:00)
[2018-03-04] MEDS ORDERED: MORPHINE 10 MG/ML 1ML VIAL (J2270) IV (10:00)
[2018-03-04] MEDS ORDERED: fentaNYL 100 MCG/2 ML INJECTION (J3010) IV (10:00)
[2018-03-04] MEDS ORDERED: PERCOCET 5MG/325MG TAB PO (10:00)
[2018-03-04] MEDS: ONDANSETRON 4MG/2ML VIAL (J2405) IV (10:40)
[2018-03-04] MEDS: KCL 20MEQ IN D5/0.45NS 1000ML 1,000 ML IV ×2 (11:56→19:50)
[2018-03-04] MEDS: AcetaZOLAMIDE 500MG INJECTION (J1120) IV (16:03)
[2018-03-04] MEDS ORDERED: AcetaZOLAMIDE 250 MG TAB PO (21:00)
== END 2018-03-04 20:08 | disposition home or self-care (01) | DRG 92 ==
LOC: M OR 06:37 → M MS5PR 11:36
PROC: 009U3ZZ Drainage of Spinal Canal, Percutaneous Approach (ICD-10-PCS; principal; 2018-03-04 08:15)
DX: T85.02XA Displacement of ventricular intracranial (communicating) shunt, initial encounter (principal); H47.10 Unspecified papilledema; G93.2 Benign intracranial hypertension; M47.892 Other spondylosis, cervical region; M47.896 Other spondylosis, lumbar region; Z98.2 Presence of cerebrospinal fluid drainage device; Z53.8 Procedure and treatment not carried out for other reasons; Y82.9 Unspecified medical devices associated with adverse incidents

== ENCOUNTER 2018-03-18 01:12 | Emergency (ER) | payer OTHER ==
[2018-03-18] MEDS: KETOROLAC 30 MG/ML VIAL (J1885) IV (02:15)
[2018-03-18] MEDS: diphenhydrAMINE INJ 50MG/ML VIAL (J1200) IV (02:15)
[2018-03-18] MEDS: NS 1,000 ML IV (02:15)
[2018-03-18] MEDS: METOCLOPRAMIDE INJ 10MG/2ML VIAL (J2765) IV ×2 (02:52→04:41)
[2018-03-18] MEDS: MORPHINE 4 MG/ML 1ML VIAL/SYRINGE (J2270) IV (04:40)
== END 2018-03-18 06:29 | disposition home or self-care (01) ==
LOC: M ED 01:12
DX: G43.909 Migraine, unspecified, not intractable, without status migrainosus (principal); G93.2 Benign intracranial hypertension; Z79.899 Other long term (current) drug therapy; Z91.030 Bee allergy status
CPT/HCPCS: J2270

== ENCOUNTER 2018-03-19 14:18 | Emergency (ER) | payer OTHER ==
[2018-03-19] MEDS ORDERED: MORPHINE 2 MG/ML 1ML SYRINGE (J2270) IV (16:00)
[2018-03-19 16:07] LABS: BASO % 0.5 % (0.0-1.0); EOS % 0.7 % (0.0-3.0); HEMATOCRIT 34.9 % (36.0-47.0); HEMOGLOBIN 10.7 g/dl (12.0-15.5); IMMATURE GRANULOCYTE % 0.3 % (0-3.0); LYMPH # 1.1 10^3/uL (1.5-6.5); LYMPH % 18.1 % (24.0-44.0); MEAN CORPUSCULAR HEMOGLOBIN 24.5 pg (27.0-33.0); MEAN CORPUSCULAR HGB CONC 30.7 g/dl (32.0-36.5); MONO # 0.2 10^3/uL (0.0-0.8); NEUTROPHILS # 4.6 10^3/uL (1.8-7.7); NEUTROPHILS % 76.4 % (36.0-66.0); RED BLOOD COUNT 4.36 10^6/uL (4.00-5.40); RED CELL DISTRIBUTION WIDTH 13.2 % (11.5-14.5)
[2018-03-19] MEDS ORDERED: MORPHINE 4 MG/ML 1ML VIAL/SYRINGE (J2270) As Ordered (16:10)
[2018-03-19] MEDS: MORPHINE 4 MG/ML 1ML VIAL/SYRINGE (J2270) IM (16:15)
[2018-03-19 16:17] LABS: INR 0.97
[2018-03-19 16:18] LABS: PARTIAL THROMBOPLASTIN TIME 28.7 SECONDS (26.8-37.9)
[2018-03-19 16:25] LABS: CONTROL LINE HCG INT CTR LINE PRESENT; HCG, SERUM QUALITATIVE NEGATIVE (NEGATIVE)
[2018-03-19 16:30] LABS: ANION GAP 5 MEQ/L (8-16); BLOOD UREA NITROGEN 11 MG/DL (7-18); CALCIUM LEVEL 8.7 MG/DL (8.5-10.1); CARBON DIOXIDE LEVEL 29 MEQ/L (21-32); CHLORIDE LEVEL 107 MEQ/L (98-107); CREATININE FOR GFR 0.85 MG/DL (0.55-1.30); GLOMERULAR FILTRATION RATE > 60.0 (>60); GLUCOSE, FASTING 91 MG/DL (70-100); LIPASE 104 U/L (73-393); POTASSIUM SERUM 3.8 MEQ/L (3.5-5.1); SODIUM LEVEL 141 MEQ/L (136-145)
[2018-03-19 17:10] LABS: PLATELET COUNT, AUTOMATED 30 10^3/uL (150-450); POS COUNT POS FLAG; POSITIVE MORPH POS FLAG; SUSPECT SAMPLE POS FLAG
[2018-03-19 17:14] LABS: IMMATURE PLATELET FRACTION % 2.4 % (0.0-9.6); PLATELET F 18
== END 2018-03-19 20:38 | disposition short-term general hospital (02) ==
LOC: M ED 14:18
DX: T85.09XA Other mechanical complication of ventricular intracranial (communicating) shunt, initial encounter (principal); G93.2 Benign intracranial hypertension; K21.9 Gastro-esophageal reflux disease without esophagitis; Z79.899 Other long term (current) drug therapy; Z91.030 Bee allergy status
CPT/HCPCS: J2270

== ENCOUNTER → 2020-01-17 | Outpatient (REF) | payer OTHER, MEDICAID ==
[~2020-01-17] MED LIST changes: +ACET50CA PO; +COLA100C5 PO; +DIAM500C PO; +IBUP-1114 PO; -LIDOCAINE 2% INJ 100 MG/5 ML SDV (FOR ANES.) As Ordered; +METF500T13 PO; +MORP15IN4 IV; +NEXI40GR PO; -ONDANSETRON 4MG/2ML VIAL (J2405) As Ordered; -PROPOFOL 200 MG/20 ML VIAL As Ordered; -ROCURONIUM BROMIDE 50 MG/5 ML VIAL As Ordered; +SALI0.9I2 IV; +TYLE325T5 PO; +ZANT150T15 PO; +ZOFR4SOL IV; +cephulac PO; -dexameTHASONE 4 MG/ML 1ML VIAL (J1100) As Ordered
[2020-01-17 13:29] LABS: HEMATOCRIT 29.8 % (36.0-47.0); HEMOGLOBIN 7.9 g/dl (12.0-15.5); MEAN CORPUSCULAR HEMOGLOBIN 14.6 pg (27.0-33.0); MEAN CORPUSCULAR HGB CONC 26.5 g/dl (32.0-36.5); MEAN CORPUSCULAR VOLUME 55.2 fl (80.0-96.0); WHITE BLOOD COUNT 8.1 10^3/uL (4.0-10.0)
[2020-01-17 13:46] LABS: ALBUMIN 3.4 GM/DL (3.2-5.2); ALT/SGPT 16 U/L (12-78); BILIRUBIN,TOTAL 0.2 MG/DL (0.2-1.0); BLOOD UREA NITROGEN 16 MG/DL (7-18); CALCIUM LEVEL 8.5 MG/DL (8.5-10.1); CARBON DIOXIDE LEVEL 23 MEQ/L (21-32); CHLORIDE LEVEL 112 MEQ/L (98-107); CHOLESTEROL LEVEL 109 MG/DL (<200); CHOLESTEROL RISK RATIO 3.758 (<5); FREE T4 1.11 NG/DL (0.76-1.46); GLOMERULAR FILTRATION RATE > 60.0 (>60); GLUCOSE, FASTING 100 MG/DL (70-100); HDL CHOLESTEROL 29 MG/DL (>40); LDL CHOLESTEROL 57 MG/DL (<100); NON-HDL-C 80 MG/DL; POTASSIUM SERUM 4.2 MEQ/L (3.5-5.1); SODIUM LEVEL 141 MEQ/L (136-145); TOTAL 25(OH) VITAMIN D 15.6 NG/ML (30.0-100.0); TOTAL PROTEIN 7.6 GM/DL (6.4-8.2); TRIGLYCERIDES LEVEL 114 MG/DL (<150)
[2020-01-17 14:11] LABS: EOSINOPHILS 1 % (0-3); LYMPHOCYTES 57 % (16-44); NEUTROPHILS 42 % (28-66)
[2020-01-17 14:12] LABS: PLATELET ESTIMATE NORMAL (NORMAL)
[2020-01-17 14:13] LABS: HYPOCHROMASIA 3+; OVALOCYTES 1+; ROULEAUX 2+
[2020-01-17 14:16] LABS: ANISOCYTOSIS 2+; PLATELET CLUMPS MODERATE AMT
[2020-01-17 14:18] LABS: POIKILOCYTOSIS 2+
[2020-01-17 19:58] LABS: HEMOGLOBIN A1c 5.6 %
== END ==
LOC: M LAB REF 12:05
PROVIDERS: ATTEND Nurse Practitioner Family
DX: E66.01 Morbid (severe) obesity due to excess calories (principal); I10 Essential (primary) hypertension; F44.89 Other dissociative and conversion disorders; Z28.3 Underimmunization status

== ENCOUNTER → 2021-05-09 | Outpatient (REF) | payer OTHER ==
[~2021-05-09] MED LIST changes: +FERR325T3 PO; +RIZA5TAB PO; +SUMA50TA2 PO; +TOPI100T9 PO
[2021-05-09 17:55] LABS: BASO % 0.6 % (0.0-1.0); EOS # 0.1 10^3/uL (0.0-0.5); EOS % 1.8 % (0.0-3.0); HEMATOCRIT 28.1 % (36.0-47.0); HEMOGLOBIN 7.3 g/dl (12.0-15.5); LYMPH # 2.7 10^3/uL (1.5-5.0); LYMPH % 38.2 % (24.0-44.0); MEAN CORPUSCULAR HEMOGLOBIN 13.9 pg (27.0-33.0); MEAN CORPUSCULAR VOLUME 53.4 fl (80.0-96.0); MONO # 0.5 10^3/uL (0.0-0.8); MONO % 6.3 % (2.0-8.0); NEUTROPHILS # 3.8 10^3/uL (1.5-8.5); NEUTROPHILS % 52.8 % (36.0-66.0); PLATELET COUNT, AUTOMATED 317 10^3/uL (150-450); RED BLOOD COUNT 5.26 10^6/uL (4.00-5.40); WHITE BLOOD COUNT 7.2 10^3/uL (4.0-10.0)
[2021-05-09 18:03] LABS: APPEARANCE, URINE HAZY (CLEAR); BACTERIA, URINE AUTO NEGATIVE (NEGATIVE); BILIRUBIN, URINE AUTO NEGATIVE (NEGATIVE); BLOOD, URINE BLOOD NEGATIVE (NEGATIVE); COLOR, URINE YELLOW (YELLOW); GLUCOSE, URINE (UA) AUTO NEGATIVE (NEGATIVE); KETONE, URINE AUTO NEGATIVE (NEGATIVE); LEUKOCYTE ESTERASE, URINE AUTO NEGATIVE (NEGATIVE); MUCUS, URINE MODERATE (NEGATIVE); NITRITE, URINE AUTO NEGATIVE (NEGATIVE); PROTEIN, URINE AUTO 2+ mg/dL (NEGATIVE); RBC, URINE AUTO 0 /HPF (0-3); SPECIFIC GRAVITY URINE AUTO 1.031 (1.002-1.035); SQUAMOUS EPITHELIAL CELL UR AU 8 /HPF (0-6); UROBILINOGEN, URINE AUTO 0.2 mg/dL (0.0-2.0); WBC, URINE AUTO 3 /HPF (0-3)
[2021-05-09 18:24] LABS: ALBUMIN 3.5 GM/DL (3.2-5.2); ALT/SGPT 14 U/L (12-78); BILIRUBIN,TOTAL 0.4 MG/DL (0.2-1.0); BLOOD UREA NITROGEN 10 MG/DL (7-18); CALCIUM LEVEL 8.3 MG/DL (8.5-10.1); CARBON DIOXIDE LEVEL 24 MEQ/L (21-32); CHLORIDE LEVEL 108 MEQ/L (98-107); CHOLESTEROL LEVEL 132 MG/DL (<200); CHOLESTEROL RISK RATIO 3.473 (<5); CREATININE FOR GFR 0.82 MG/DL (0.55-1.30); FREE T4 1.17 NG/DL (0.76-1.46); GLOMERULAR FILTRATION RATE > 60.0 (>60); GLUCOSE, FASTING 85 MG/DL (70-100); HDL CHOLESTEROL 38 MG/DL (>40); LDL CHOLESTEROL 74 MG/DL (<100); NON-HDL-C 94 MG/DL; POTASSIUM SERUM 3.8 MEQ/L (3.5-5.1); SODIUM LEVEL 138 MEQ/L (136-145); TOTAL PROTEIN 7.7 GM/DL (6.4-8.2); TRIGLYCERIDES LEVEL 100 MG/DL (<150)
[2021-05-09 18:25] LABS: TOTAL 25(OH) VITAMIN D 20.8 NG/ML (30.0-100.0)
[2021-05-09 18:35] LABS: HEMOGLOBIN A1c 5.1 %
[2021-05-09 18:50] LABS: MICROCYTOSIS 4+; OVALOCYTES 2+; PLATELET ESTIMATE NORMAL (NORMAL); POIKILOCYTOSIS 2+
[2021-05-09 18:51] LABS: HYPOCHROMASIA 2+; TEAR DROP CELLS 1+
[2021-05-09 19:04] LABS: HEPATITIS C VIRUS ABY INDEX 0.2 INDEX (<0.8); HIV 1&2 SCREEN CENTAUR NEGATIVE (NEGATIVE)
[2021-05-10 15:56] LABS: FERRITIN 3 NG/ML (8-252); IRON (FE) 16 UG/DL (50-170); PERCENT SATURATION 3.6 % (13.2-45.0); TOTAL IRON BINDING CAPACITY 446 UG/DL (250-450)
== END ==
LOC: M LAB REF 16:54
PROVIDERS: ATTEND Nurse Practitioner Family
DX: Z01.818 Encounter for other preprocedural examination (principal); Z00.00 Encounter for general adult medical examination without abnormal findings

== ENCOUNTER 2021-05-18 10:25 | Emergency (ER) | payer OTHER ==
[~2021-05-18] VITALS: Ht 165.1 cm; Wt 131.8 kg
[2021-05-18] VITALS (9 sets, daily range): BP systolic 105–131; BP diastolic 55–82
[~2021-05-18 10:25] MED LIST changes: -RIZA5TAB PO; +RIZA5TAB2 PO
[2021-05-18] MEDS ORDERED: NS 1,000 ML IV ONE (11:25)
[2021-05-18] MEDS ORDERED: ACETAMINOPHEN 500 MG TAB PO ONE (11:30)
--- NOTE | 2021-05-18 12:38 | REP ---
INDICATION: pelvic cramping, heavy vag bleeding COMPARISON: None. TECHNIQUE: Transabdominal pelvic ultrasound followed by transvaginal examination for better evaluation of the endometrium and adnexa with color Doppler evaluation of the ovaries. FINDINGS: Bladder is unremarkable and measures 5.8 x 3.9 x 2.7 cm. Normal anteverted uterus measures 10.2 x 4.8 x 6.1 cm. The endometrial complex measures 15 mm thickness. No discrete uterine or endometrial abnormalities are appreciated. Bilateral ovaries are normal in appearance and vascularity without evidence for torsion. Right ovary measures 3.2 x 2.3 x 2.5 cm; R I = 0.45. Left ovary measures 3.9 x 2.7 x 2.9 cm; R I = 0.44. Trace pelvic free fluid is nonspecific and likely physiologic. IMPRESSION: 1. Thickened endometrial complex likely related to menstrual cycle. 2. Otherwise normal pelvic ultrasound. <Electronically signed by Sean Medina > 05/18/21 [id number]
[2021-05-18 12:47] LABS: HEMATOCRIT 26.5 % (36.0-47.0); HEMOGLOBIN 7.1 g/dl (12.0-15.5); MEAN CORPUSCULAR HEMOGLOBIN 14.3 pg (27.0-33.0); MEAN CORPUSCULAR HGB CONC 26.8 g/dl (32.0-36.5); MEAN CORPUSCULAR VOLUME 53.3 fl (80.0-96.0); PLATELET COUNT, AUTOMATED 255 10^3/uL (150-450); RED BLOOD COUNT 4.97 10^6/uL (4.00-5.40); WHITE BLOOD COUNT 7.4 10^3/uL (4.0-10.0)
[2021-05-18 13:19] LABS: BLOOD UREA NITROGEN 13 MG/DL (7-18); CARBON DIOXIDE LEVEL 25 MEQ/L (21-32); CHLORIDE LEVEL 107 MEQ/L (98-107); GLOMERULAR FILTRATION RATE > 60.0 (>60); GLUCOSE, FASTING 95 MG/DL (70-100); POTASSIUM SERUM 3.9 MEQ/L (3.5-5.1); SODIUM LEVEL 141 MEQ/L (136-145)
[2021-05-18] MEDS ORDERED: medroxyPROGESTERone 5MG TABLET PO STA (17:29)
[2021-05-18] MEDS ORDERED: PROV10TA PO (18:08)
[2021-05-18 21:32] LABS: HEMATOCRIT 31.9 % (36.0-47.0); HEMOGLOBIN 8.9 g/dl (12.0-15.5)
== END 2021-05-18 21:49 | disposition home or self-care (01) ==
LOC: M ED 10:25
DX: N93.8 Other specified abnormal uterine and vaginal bleeding (principal); N94.6 Dysmenorrhea, unspecified; D64.9 Anemia, unspecified; I95.1 Orthostatic hypotension; K21.9 Gastro-esophageal reflux disease without esophagitis; E66.9 Obesity, unspecified; Z79.899 Other long term (current) drug therapy; Z91.030 Bee allergy status
CPT/HCPCS: 36415; 36430; 76830; 76856; 80048; 84702; 85014; 85018; 85027; 86850; 86900; 86901; 86920; 93041; 93976; 94760; 96360; 99285; P9016

== ENCOUNTER 2021-05-19 17:05 | Emergency (ER) | payer OTHER ==
[~2021-05-19] VITALS: Ht 165.1 cm; Wt 131.8 kg
[~2021-05-19 17:05] MED LIST changes: +PROV10TA PO
[2021-05-19 17:50] LABS: HEMATOCRIT 30.3 % (36.0-47.0); HEMOGLOBIN 8.7 g/dl (12.0-15.5); MEAN CORPUSCULAR HGB CONC 28.7 g/dl (32.0-36.5); MEAN CORPUSCULAR VOLUME 59.3 fl (80.0-96.0); PLATELET COUNT, AUTOMATED 247 10^3/uL (150-450); RED BLOOD COUNT 5.11 10^6/uL (4.00-5.40); WHITE BLOOD COUNT 8.4 10^3/uL (4.0-10.0)
[2021-05-19 18:49] VITALS: BP 132/68
== END 2021-05-19 18:50 | disposition home or self-care (01) ==
LOC: M ED 17:05
DX: N93.8 Other specified abnormal uterine and vaginal bleeding (principal); Z09 Encounter for follow-up examination after completed treatment for conditions other than malignant neoplasm; D50.9 Iron deficiency anemia, unspecified; K21.9 Gastro-esophageal reflux disease without esophagitis; G93.2 Benign intracranial hypertension; K90.0 Celiac disease; E66.9 Obesity, unspecified; Z79.899 Other long term (current) drug therapy; Z91.013 Allergy to seafood

== ENCOUNTER → 2021-06-06 | Outpatient (CLI) | payer OTHER ==
--- NOTE | 2021-06-06 18:50 | ECGEPIP ---
[facility] Test Date: 2021-06-06 Pat Name: IMELDA ELLIS Department: Room: - Gender: Female Epic Cadence Analyst: ISAEL : 1990 Requested By: Akua COX Order Number: [id number] Reading MD: Edwardo Colon Measurements Intervals [place] Rate: 77 P: 54 [place]: 152 QRS: 30 QRSD: 98 T: 42 QT: 388 QTc: 439 Interpretive Statements Normal sinus rhythm Last tracing on 02/24/18, 13:24. No remarkable changes Electronically Signed on 06-06-2021 18:49:40 EDT by Edwardo Colon
== END ==
LOC: M EKG 10:25 → M LAB 10:25
PROVIDERS: ATTEND Nurse Practitioner Family
DX: Z01.818 Encounter for other preprocedural examination (principal)

== ENCOUNTER 2021-06-09 15:48 | Emergency (ER) | payer OTHER ==
[~2021-06-09] VITALS: Ht 165.1 cm; Wt 131.8 kg
[2021-06-09 20:49] LABS: BASO # 0.1 10^3/uL (0.0-0.2); EOS # 0.1 10^3/uL (0.0-0.5); EOS % 1.3 % (0.0-3.0); HEMATOCRIT 30.6 % (36.0-47.0); LYMPH # 2.4 10^3/uL (1.5-5.0); LYMPH % 39.4 % (24.0-44.0); MEAN CORPUSCULAR HEMOGLOBIN 19.3 pg (27.0-33.0); MEAN CORPUSCULAR HGB CONC 29.4 g/dl (32.0-36.5); MEAN CORPUSCULAR VOLUME 65.7 fl (80.0-96.0); MONO # 0.3 10^3/uL (0.0-0.8); MONO % 5.4 % (2.0-8.0); NEUTROPHILS # 3.2 10^3/uL (1.5-8.5); NEUTROPHILS % 52.7 % (36.0-66.0); PLATELET COUNT, AUTOMATED 407 10^3/uL (150-450); RED BLOOD COUNT 4.66 10^6/uL (4.00-5.40); WHITE BLOOD COUNT 6.1 10^3/uL (4.0-10.0)
[2021-06-09 21:05] LABS: BLOOD UREA NITROGEN 13 MG/DL (7-18); CALCIUM LEVEL 8.9 MG/DL (8.5-10.1); CARBON DIOXIDE LEVEL 23 MEQ/L (21-32); CHLORIDE LEVEL 112 MEQ/L (98-107); CREATININE FOR GFR 0.76 MG/DL (0.55-1.30); GLOMERULAR FILTRATION RATE > 60.0 (>60); GLUCOSE, FASTING 88 MG/DL (70-100); POTASSIUM SERUM 3.9 MEQ/L (3.5-5.1); SODIUM LEVEL 143 MEQ/L (136-145)
[2021-06-09 21:25] LABS: HCG, SERUM QUALITATIVE NEGATIVE (NEGATIVE)
[2021-06-09 21:27] LABS: PLATELET ESTIMATE NORMAL (NORMAL)
[2021-06-09 21:28] LABS: ANISOCYTOSIS 4+
[2021-06-09 21:29] LABS: POIKILOCYTOSIS 3+
[2021-06-09 21:30] LABS: HYPOCHROMASIA 2+; OVALOCYTES 2+; TEAR DROP CELLS 1+
[2021-06-09 21:32] LABS: SCHISTOCYTES 2+
[2021-06-09] MEDS ORDERED: medroxyPROGESTERone 5MG TABLET PO STA (22:27)
[2021-06-09 23:34] VITALS: BP 138/82
== END 2021-06-09 23:35 | disposition home or self-care (01) ==
LOC: M ED 15:48
DX: N93.8 Other specified abnormal uterine and vaginal bleeding (principal); Z79.899 Other long term (current) drug therapy; Z91.030 Bee allergy status

== ENCOUNTER → 2021-06-25 | Outpatient (REF) | payer OTHER | LOC: M SFHCWAGY 19:22 | PROVIDERS: ATTEND Obstetrics & Gynecology | DX: N93.9 Abnormal uterine and vaginal bleeding, unspecified (principal) ==

== ENCOUNTER → 2021-07-24 | Outpatient (CLI) | payer OTHER ==
[2021-07-24 12:48] LABS: BASO % 0.5 % (0.0-1.0); EOS # 0.2 10^3/uL (0.0-0.5); EOS % 2.8 % (0.0-3.0); HEMATOCRIT 38.4 % (36.0-47.0); HEMOGLOBIN 11.1 g/dl (12.0-15.5); LYMPH % 32.8 % (24.0-44.0); MEAN CORPUSCULAR HEMOGLOBIN 20.8 pg (27.0-33.0); MEAN CORPUSCULAR HGB CONC 28.9 g/dl (32.0-36.5); MONO # 0.5 10^3/uL (0.0-0.8); MONO % 7.5 % (2.0-8.0); NEUTROPHILS # 3.5 10^3/uL (1.5-8.5); NEUTROPHILS % 56.1 % (36.0-66.0); PLATELET COUNT, AUTOMATED 320 10^3/uL (150-450); RED BLOOD COUNT 5.33 10^6/uL (4.00-5.40); WHITE BLOOD COUNT 6.2 10^3/uL (4.0-10.0)
[2021-07-24 13:14] LABS: BLOOD UREA NITROGEN 10 MG/DL (7-18); CALCIUM LEVEL 8.9 MG/DL (8.5-10.1); CARBON DIOXIDE LEVEL 25 MEQ/L (21-32); CHLORIDE LEVEL 108 MEQ/L (98-107); CREATININE FOR GFR 0.75 MG/DL (0.55-1.30); GLOMERULAR FILTRATION RATE > 60.0 (>60); GLUCOSE, FASTING 103 MG/DL (70-100); POTASSIUM SERUM 4.1 MEQ/L (3.5-5.1); SODIUM LEVEL 140 MEQ/L (136-145)
[2021-07-24 13:15] LABS: ALBUMIN 3.2 GM/DL (3.2-5.2); ALT/SGPT 21 U/L (12-78); BILIRUBIN,TOTAL 0.3 MG/DL (0.2-1.0); TOTAL PROTEIN 7.4 GM/DL (6.4-8.2)
== END ==
LOC: M LAB 11:15
PROVIDERS: ATTEND Nurse Practitioner Family
DX: D50.9 Iron deficiency anemia, unspecified (principal); E66.9 Obesity, unspecified; Z91.030 Bee allergy status